=== PATIENT | female | born 1955 | race Caucasian/White ===

== ENCOUNTER 2023-12-27 09:00 | Day surgery (SDC) | payer OTHER ==
[2023-12-24 13:56] VITALS: BMI 51.5
[2023-12-27 11:28] VITALS: TEMP 98.2
[2023-12-27 11:57] VITALS: RESP 18
[2023-12-27 12:04] VITALS: BP 135/50; PULSE 69
== END 2023-12-27 12:04 | disposition home or self-care (01) ==
LOC: JASU-ENDO 09:00
PROVIDERS: ATTEND Internal Medicine Gastroenterology
PROC: 0DJD8ZZ Inspection of Lower Intestinal Tract, Via Natural or Artificial Opening Endoscopic (ICD-10-PCS; principal; 2023-12-27 10:30)
DX: R10.32 Left lower quadrant pain (principal)